=== PATIENT | male | born 1980 | race Hispanic/Latino ===

== ENCOUNTER 2019-08-27 17:50 | Emergency (ER) | payer BC ==
--- NOTE | 2019-08-27 19:12 | RAD REPORT ---
EXAM DESCRIPTION: RAD - Chest Pa And Lat (2 Views) - 08/27/2019 7:05 pm CLINICAL HISTORY: left rib pain Chest pain. COMPARISON: CHEST SINGLE VIEW dated 02/02/2015 FINDINGS: The lungs are clear. The heart is normal in size. No displaced fractures. IMPRESSION: No acute or concerning finding suspected.
[2019-08-27] MEDS ORDERED: KETOROLAC 30 MG/ML INJ ONE (20:23)
--- NOTE | 2019-08-27 22:37 | ER ---
Nurse's Notes [facility] Name: Julius Rogers Age: 39 yrs Sex: Male : 1980 Arrival Date: 08/27/2019 Time: 17:52 Bed 20 Private MD: Jarad Wynn Diagnosis: Headache Presentation: 08/27 18:00 Presenting complaint: Patient states: dizzy and headache and left side has been iw twitching X 3 days. Transition of care: patient was not received from another setting of care. Onset of symptoms was August 24, 2019. Risk Assessment: Do you want to hurt yourself or someone else? Patient reports no desire to harm self or others. Initial Sepsis Screen: Does the patient meet any 2 criteria? No. Patient's initial sepsis screen is negative. Does the patient have a suspected source of infection? No. Patient's initial sepsis screen is negative. Care prior to arrival: None. 18:00 Method Of Arrival: Ambulatory iw 18:00 Acuity: GARTH 3 iw Triage Assessment: 23:03 Headache History: Denies prior headaches. General: Appears in no apparent distress. lc1 Behavior is calm, cooperative. Pain: Also complains of. Pain: Complains of pain in left eye and right eye and diaphragm Pain began. Historical: - Allergies: 18:01 No Known Allergies; iw - Home Meds: 18:01 None [Active]; iw - PMHx: 18:01 None; iw - PSHx: 18:01 None; iw - Immunization history:: Adult Immunizations not up to date. - Social history:: Smoking status: Patient/guardian denies using tobacco. - Ebola Screening: : Patient negative for fever greater than or equal to 101.5 degrees Fahrenheit, and additional compatible Ebola Virus Disease symptoms Patient denies exposure to infectious person Patient denies travel to an Ebola-affected area in the 21 days before illness onset No symptoms or risks identified at this time. Screenin:51 Abuse screen: Denies threats or abuse. Nutritional screening: No deficits noted. em Tuberculosis screening: No symptoms or risk factors identified. Fall Risk None identified. Assessment: 18:30 General: Appears in no apparent distress. comfortable, Behavior is calm, cooperative, em Denies fever. Pain: Complains of pain in diaphragm Pain currently is 8 out of 10 on a pain scale. Neuro: Level of Consciousness is awake, alert, obeys commands, Oriented to person, place, time, situation, Appropriate for age Reports headache. Cardiovascular: Capillary refill < 3 seconds Patient's skin is warm and dry. Respiratory: Airway is patent Respiratory effort is even, unlabored, Respiratory pattern is regular, symmetrical, Denies cough. : Denies burning with urination. Derm: Skin is intact, is healthy with good turgor, Skin is pink, warm \T\ dry. Musculoskeletal: Capillary refill < 3 seconds, Range of motion: intact in all extremities. 20:07 Reassessment: No changes from previously documented assessment. Patient and/or family lc1 updated on plan of care and expected duration. Pain level reassessed. Patient is alert, oriented x 3, equal unlabored respirations, skin warm/dry/pink. Patient states feeling better. still awaiting urine sample . 20:24 Pain: Complains of pain in left diaphragm Pain does not radiate. Pain currently is 7 lc1 out of 10 on a pain scale. Quality of pain is described as sharp. 21:05 Reassessment: No changes from previously documented assessment. Patient and/or family lc1 updated on plan of care and expected duration. Pain level reassessed. Patient is alert, oriented x 3, equal unlabored respirations, skin warm/dry/pink. Patient states feeling better. 22:00 Reassessment: No changes from previously documented assessment. Patient and/or family lc1 updated on plan of care and expected duration. Pain level reassessed. Patient is alert, oriented x 3, equal unlabored respirations, skin warm/dry/pink. Patient states feeling better. 23:01 Reassessment: No changes from previously documented assessment. Patient and/or family lc1 updated on plan of care and expected duration. Pain level reassessed. Patient is alert, oriented x 3, equal unlabored respirations, skin warm/dry/pink. Patient states feeling better. Vital Signs: 18:01 BP 127 / 79; Pulse 96; Resp 16; Temp 98.4; Pulse Ox 100% on R/A; Weight 115.67 kg; iw Height 5 ft. 10 in. (177.80 cm); Pain 8/10; 19:00 BP 131 / 85; Pulse 72; Resp 16; Pulse Ox 95% ; lc1 20:00 BP 116 / 82; Pulse 75; Resp 16; Pulse Ox 95% ; lc1 21:00 BP 119 / 83; Pulse 70; Resp 18; Pulse Ox 95% ; Pain 5/10; lc1 21:50 BP 118 / 91; Pulse 66; Resp 17; Temp 97.8(O); Pulse Ox 95% on R/A; mh5 22:15 BP 111 / 59; Pulse 59; Resp 18; Pulse Ox 96% on R/A; lc1 18:01 Body Mass Index 36.59 (115.67 kg, 177.80 cm) iw [place] Com[place] Score: 21:44 Eye Response: spontaneous(4). Verbal Response: oriented(5). Motor Response: obeys snw commands(6). Total: 15. ED Course: 17:52 Patient arrived in ED. mr 17:52 Jarad Wynn MD is Private Physician. mr 18:01 Triage completed. iw 18:02 Arm band placed on. iw 18:31 Marybeth Keith FNP-C [facility] snw 18:31 Andrea Garcia MD is Attending Physician. snw 18:32 Timoteo Alba LVN is Primary Nurse. em 18:45 Flu Sent. dh3 18:45 Strep Sent. dh3 18:51 Patient has correct armband on for positive identification. Bed in low position. Call em light in reach. 19:03 Chest Pa And Lat (2 Views) XRAY In Process Unspecified. EDMS 22:15 No provider procedures requiring assistance completed. Patient did not have IV access lc1 during this emergency room visit. 22:35 Jarad Wynn MD is Referral Physician. snw Administered Medications: 20:22 Drug: TORadol 30 mg Route: IM; Site: right deltoid; lc1 21:06 Follow up: Response: Pain is decreased; RASS: Alert and Calm (0) lc1 Outcome: 22:15 Discharged to home ambulatory. lc1 22:15 Condition: good 22:15 Discharge instructions given to patient, Instructed on discharge instructions, follow up and referral plans. medication usage, Demonstrated understanding of instructions, follow-up care, medications, Prescriptions given X 2. 22:35 Discharge ordered by MD. snw 23:23 Patient left the ED. lc1 Signatures: Dispatcher [employer] EDMS Marybeth Keith FNP-C FNP-Csnw Lesly Moe mr Alba, Timoteo, CUSTOMER QUALITY SPECIALIST CUSTOMER QUALITY SPECIALIST Felipa Lim, MELANIE RN Sherlyn Marquez 1 [facility] Sonia Crawford 3
--- NOTE | 2019-08-27 22:37 | EDPHYS ---
Physician Documentation [facility] Name: Julius Rogers Age: 39 yrs Sex: Male : 1980 Arrival Date: 08/27/2019 Time: 17:52 Bed 20 Private MD: Jarad Wynn ED Physician Andrea Garcia HPI: 08/27 22:34 This 39 yrs old Male presents to ER via Ambulatory with complaints of snw Headache, Dizziness, Rib pain. 22:34 The patient complains of pain to the right eye and left eye. The patient describes the snw headache as intermittent. Onset: The symptoms/episode began/occurred gradually, 3 day(s) ago, and became persistent. Associated signs and symptoms: Pertinent positives: dizziness. Severity of symptoms: At its worst the pain was moderate, in the emergency department the pain is unchanged. Headache History: Denies prior headaches. The symptoms are alleviated by over the counter pain medication, remaining still. It is unknown whether or not the patient has had similar symptoms in the past. The patient has not recently seen a physician. Historical: - Allergies: 18:01 No Known Allergies; iw - Home Meds: 18:01 None [Active]; iw - PMHx: 18:01 None; iw - PSHx: 18:01 None; iw - Immunization history:: Adult Immunizations not up to date. - Social history:: Smoking status: Patient/guardian denies using tobacco. - Ebola Screening: : Patient negative for fever greater than or equal to 101.5 degrees Fahrenheit, and additional compatible Ebola Virus Disease symptoms Patient denies exposure to infectious person Patient denies travel to an Ebola-affected area in the 21 days before illness onset No symptoms or risks identified at this time. ROS: 21:43 Constitutional: Negative for fever, chills, and weight loss, Eyes: Negative for injury, snw pain, redness, and discharge, ENT: Negative for injury, pain, and discharge, Neck: Negative for injury, pain, and swelling, Cardiovascular: Negative for chest pain, palpitations, and edema, Respiratory: Negative for shortness of breath, cough, wheezing, and pleuritic chest pain, Abdomen/GI: Negative for abdominal pain, nausea, vomiting, diarrhea, and constipation, + left flank pain Back: Negative for injury and pain, : Negative for injury, bleeding, discharge, and swelling, MS/Extremity: Negative for injury and deformity, Skin: Negative for injury, rash, and discoloration, Neuro: Negative for weakness, numbness, tingling, and seizure, + intermittent headache behind eyes Exam: 18:58 Constitutional: This is a well developed, well nourished patient who is awake, alert, snw and in no acute distress. Head/Face: Normocephalic, atraumatic. Eyes: Pupils equal round and reactive to light, extra-ocular motions intact. Lids and lashes normal. Conjunctiva and sclera are non-icteric and not injected. Cornea within normal limits. Periorbital areas with no swelling, redness, or edema. ENT: Nares patent. No nasal discharge, no septal abnormalities noted. Tympanic membranes are normal and external auditory canals are clear. Oropharynx with no redness, swelling, or masses, exudates, or evidence of obstruction, uvula midline. Mucous membranes moist. Neck: Trachea midline, no thyromegaly or masses palpated, and no cervical lymphadenopathy. Supple, full range of motion without nuchal rigidity, or vertebral point tenderness. No Meningismus. Chest/axilla: Normal chest wall appearance and motion. Nontender with no deformity. No lesions are appreciated. Cardiovascular: Regular rate and rhythm with a normal S1 and S2. No gallops, murmurs, or rubs. Normal PMI, no JVD. No pulse deficits. Respiratory: Lungs have equal breath sounds bilaterally, clear to auscultation and percussion. No rales, rhonchi or wheezes noted. No increased work of breathing, no retractions or nasal flaring. Abdomen/GI: Soft, non-tender, with normal bowel sounds. No distension or tympany. No guarding or rebound. No evidence of tenderness throughout. Back: No spinal tenderness. No costovertebral tenderness. Full range of motion. Skin: Warm, dry with normal turgor. Normal color with no rashes, no lesions, and no evidence of cellulitis. MS/ Extremity: Pulses equal, no cyanosis. Neurovascular intact. Full, normal range of motion. Neuro: Awake and alert, GCS 15, oriented to person, place, time, and situation. Cranial nerves II-XII grossly intact. Motor strength 5/5 in all extremities. Sensory grossly intact. Cerebellar exam normal. Normal gait. Psych: Awake, alert, with orientation to person, place and time. Behavior, mood, and affect are within normal limits. Vital Signs: 18:01 BP 127 / 79; Pulse 96; Resp 16; Temp 98.4; Pulse Ox 100% on R/A; Weight 115.67 kg; iw Height 5 ft. 10 in. (177.80 cm); Pain 8/10; 19:00 BP 131 / 85; Pulse 72; Resp 16; Pulse Ox 95% ; lc1 20:00 BP 116 / 82; Pulse 75; Resp 16; Pulse Ox 95% ; lc1 21:00 BP 119 / 83; Pulse 70; Resp 18; Pulse Ox 95% ; Pain 5/10; lc1 21:50 BP 118 / 91; Pulse 66; Resp 17; Temp 97.8(O); Pulse Ox 95% on R/A; mh5 22:15 BP 111 / 59; Pulse 59; Resp 18; Pulse Ox 96% on R/A; lc1 18:01 Body Mass Index 36.59 (115.67 kg, 177.80 cm) iw [place] Coma Score: 21:44 Eye Response: spontaneous(4). Verbal Response: oriented(5). Motor Response: obeys snw commands(6). Total: 15. MDM: 18:43 Patient medically screened. snw 21:44 Data reviewed: vital signs, nurses notes. Data interpreted: Pulse oximetry: on room air snw is 95 %. Interpretation: acceptable. Counseling: I had a detailed discussion with the patient and/or guardian regarding: the historical points, exam findings, and any diagnostic results supporting the discharge/admit diagnosis, the presence of at least one elevated blood pressure reading (>120/80) during this emergency department visit, lab results, the need for outpatient follow up, to return to the emergency department if symptoms worsen or persist or if there are any questions or concerns that arise at home. Response to treatment: the patient's symptoms have markedly improved after treatment. Awaiting: urine. 08/27 18:32 Order name: Flu snw 08/27 18:32 Order name: Strep; Complete Time: 19:13 snw 08/27 18:32 Order name: Urine Microscopic Only; Complete Time: 23:14 snw 08/27 18:33 Order name: Influenza Screen (A ; Complete Time: 19:19 EDWV 08/27 19:07 Order name: Throat Culture EDWV 08/27 22:41 Order name: Urine Dipstick--Ancillary (enter results); Complete Time: 23:16 mw2 08/27 18:52 Order name: Chest Pa And Lat (2 Views) XRAY; Complete Time: 19:15 snw Administered Medications: 20:22 Drug: TORadol 30 mg Route: IM; Site: right deltoid; lc1 21:06 Follow up: Response: Pain is decreased; RASS: Alert and Calm (0) lc1 Disposition: 08/28 07:44 Co-signature as Attending Physician, Andrea Garcia MD I agree with the assessment and kdr plan of care. Disposition: 08/27/19 22:35 Discharged to Home. Impression: Headache. - Condition is Stable. - Discharge Instructions: General Headache Without Cause, Hypertension, Rehydration, Adult. - Prescriptions for Diclofenac Sodium 75 mg Oral Tablet Sustained Release - take 1 tablet by ORAL route 2 times per day; 30 tablet. promethazine 25 mg Oral Tablet - take 1 tablet by ORAL route every 6 hours As needed; 20 tablet. - Work release form, Medication Reconciliation Form, Thank You Letter, Antibiotic Education, Prescription Opioid Use form. - Follow up: Jarad Wynn MD; When: 1 - 2 days; Reason: Recheck today's complaints, Continuance of care, Re-evaluation by your physician. Follow up: Emergency Department; When: As needed; Reason: Worsening of condition. Signatures: Dispatcher [employer] [facility] Andrea Garcia MD MD kdr Therrien, Shelly, SUPPORT SERVICES REP-Zack SUPPORT SERVICES REP-Valdow Felipa Becker, RN Sherlyn Jackson 1 Corrections: (The following items were deleted from the chart) 08/27 21:44 21:43 Constitutional: Negative for fever, chills, and weight loss, Eyes: Negative for snw injury, pain, redness, and discharge, ENT: Negative for injury, pain, and discharge, Neck: Negative for injury, pain, and swelling, Cardiovascular: Negative for chest pain, palpitations, and edema, Respiratory: Negative for shortness of breath, cough, wheezing, and pleuritic chest pain, Back: Negative for injury and pain, : Negative for injury, bleeding, discharge, and swelling, MS/Extremity: Negative for injury and deformity, Skin: Negative for injury, rash, and discoloration, Neuro: Negative for headache, weakness, numbness, tingling, and seizure, snw 21:44 21:43 Abdomen/GI: Positive for abdominal pain, nausea and vomiting, snw snw 23:23 22:35 08/27/2019 22:35 Discharged to Home. Impression: Headache. Condition is Stable. lc1 Forms are Medication Reconciliation Form, Thank You Letter, Antibiotic Education, Prescription Opioid Use. Follow up: Jarad Wynn; When: 1 - 2 days; Reason: Recheck today's complaints, Continuance of care, Re-evaluation by your physician. Follow up: Emergency Department; When: As needed; Reason: Worsening of condition. snw
[2019-08-27 23:13] LABS: Urine Bacteria <20 /HPF (NONE SEEN); Urine Culture Reflex Order NOT NEEDED; Urine Mucus 2+ /HPF (NONE SEEN); Urine RBC <5 /HPF (NONE SEEN)
[2019-08-27 23:14] LABS: Urine Blood TRACE (NEG); Urine Glucose NEGATIVE (NEG); Urine Protein 1+ (NEG); Urine Specific Gravity 1.025 (1.005-1.030)
[2019-08-28 00:45] VITALS: BP 140/71; TEMP 98.9; O2SAT 100
== END 2019-08-27 23:23 | disposition home or self-care (01) ==
LOC: ER 17:50
DX: R51 Headache (principal)
CPT/HCPCS: 71046; 81003; 81015; 87070; 87081; 87804; 96372; 99284

== ENCOUNTER 2019-08-31 16:46 | Observation (INO) | payer BC ==
[2019-08-31] MEDS ORDERED: ASPIRIN 81 MG CHEWABLE TABLET ONE (17:30)
[2019-08-31 17:42] LABS: Absolute Lymphocytes (CBC) 3.5 K/uL (0.7-4.9); Basophils % 0.4 % (0-1.3); Hematocrit 44.3 % (39.6-49.0); Lymphocytes % 30.5 % (15.3-44.8); MPV 11.4 fL (7.6-11.3); RBC Red Blood Cell Count 4.85 M/uL (4.33-5.43)
[2019-08-31 17:49] LABS: Protime INR 1.12
[2019-08-31 18:04] LABS: ALT/SGPT 105 U/L (12-78); AST/SGOT 49 U/L (15-37); Albumin 4.1 g/dL (3.4-5.0); Alkaline Phosphatase 68 U/L (45-117); BUN Blood Urea Nitrogen 8 mg/dL (7-18); Bicarbonate 25 mmol/L (21-32); Bilirubin Direct 0.2 mg/dL (0-0.2); Bilirubin Total 0.5 mg/dL (0.2-1.0); Glucose Level 154 mg/dL (74-106); Lipase 115 U/L (73-393); Magnesium 2.1 mg/dL (1.8-2.4); NT PRO-BNP 12 pg/mL (<125); Protein, Total 8.4 g/dL (6.4-8.2); Sodium Level 139 mmol/L (136-145); Troponin (Emerg Dept Use Only) < 0.02 ng/mL (0.0-0.045)
[2019-08-31] MEDS ORDERED: MORPHINE 4 MG/ML SYR ONE (18:04)
[2019-08-31] MEDS ORDERED: ONDANSETRON 4 MG/2 ML VIAL ONE (18:04)
--- NOTE | 2019-08-31 18:35 | RAD REPORT ---
EXAM DESCRIPTION: [place] Single View08/31/2019 5:30 pm CLINICAL HISTORY: Chest pain COMPARISON: August 27, 2019 FINDINGS: The lungs appear clear of acute infiltrate. The heart is normal size IMPRESSION: No acute abnormalities displayed
--- NOTE | 2019-08-31 18:36 | ER ---
Nurse's Notes [facility] Name: Julius Rogers Age: 39 yrs Sex: Male : 1980 Arrival Date: 08/31/2019 Time: 16:47 Bed 11 Private MD: Diagnosis: Chest pain, unspecified;Essential (primary) hypertension;Hypokalemia;Obesity, unspecified Presentation: 08/31 17:32 Presenting complaint: Patient states: chest tightness radiates to back, SOB, sr5 palpitations, nausea, headache and dizzy. Seen here last week. Transition of care: patient was not received from another setting of care. Onset of symptoms was August 31, 2019 at 15:30. Risk Assessment: Do you want to hurt yourself or someone else? Patient reports no desire to harm self or others. Initial Sepsis Screen: Does the patient meet any 2 criteria? No. Patient's initial sepsis screen is negative. Care prior to arrival: None. 17:32 Method Of Arrival: Ambulatory sr5 17:32 Acuity: GARTH 3 sr5 Triage Assessment: 17:35 General: Appears in no apparent distress. Behavior is calm, cooperative. Pain: sr5 Complains of pain in mid-sternal area Pain radiates to back Pain currently is 9 out of 10 on a pain scale. Pain began 1 hr [employer]. Neuro: Level of Consciousness is awake, alert, obeys commands, Oriented to person, place, time, situation, Moves all extremities. Gait is steady, Speech is normal, Facial symmetry appears normal, Reports dizziness, headache. Cardiovascular: Patient's skin is warm and dry. Rhythm is sinus rhythm. Respiratory: Respiratory effort is even, unlabored, Respiratory pattern is regular, symmetrical. GI: Reports diarrhea, nausea, vomiting. : No signs and/or symptoms were reported regarding the genitourinary system. Derm: No signs and/or symptoms reported regarding the dermatologic system. Musculoskeletal: No signs and/or symptoms reported regarding the musculoskeletal system. Historical: - Allergies: 17:35 No Known Drug Allergies; sr5 - PMHx: 17:35 None; sr5 - PSHx: 17:35 None; sr5 - Immunization history:: Adult Immunizations up to date. - Social history:: Smoking status: Patient/guardian denies using tobacco, never smoked. - Ebola Screening: : Patient negative for fever greater than or equal to 101.5 degrees Fahrenheit, and additional compatible Ebola Virus Disease symptoms. - Family history:: not pertinent. Screenin:22 Abuse screen: Denies threats or abuse. Nutritional screening: No deficits noted. sr5 Tuberculosis screening: No symptoms or risk factors identified. Fall Risk No fall in past 12 months (0 pts). No secondary diagnosis (0 pts). IV access (20 points). Ambulatory Aid- None/Bed Rest/Nurse Assist (0 pts). Gait- Normal/Bed Rest/Wheelchair (0 pts) Mental Status- Oriented to own ability (0 pts). Total Davis Fall Scale indicates No Risk (0-24 pts). Assessment: 19:22 Reassessment: Pt continues to be AA\\T\\Ox4, equal unlabored resp, room air, skin sr5 warm/dry/nc, SR on monitor. IV site asympt/SL, Awaiting admission. General: Appears in no apparent distress. 22:53 Reassessment: Troponin #2 drawn and sent. UA collected. sr5 Vital Signs: 17:35 BP 132 / 84; Pulse 96; Resp 17; Temp 98.2; Pulse Ox 96% on R/A; Weight 115.67 kg (R); sr5 Height 5 ft. 11 in. (180.34 cm); Pain 9/10; 19:22 BP 131 / 106; Pulse 81; Resp 16; Pulse Ox 96% on R/A; Pain 7/10; sr5 20:25 BP 131 / 87; Pulse 69; Resp 14; Pulse Ox 97% on R/A; sr5 21:11 BP 127 / 100; Pulse 65; Resp 18; Pulse Ox 95% on R/A; sr5 22:52 BP 138 / 83; Pulse 67; Resp 18; Temp 99; Pulse Ox 95% on R/A; Pain 7/10; sr5 17:35 Body Mass Index 35.56 (115.67 kg, 180.34 cm) sr5 17:35 chest sr5 19:22 LEFT chest "tight feel" sr5 20:25 SR sr5 21:11 sinus rhythm on monitor, sitting upright talking with family sr5 22:52 shooting chest pain remains LEFT chest, skin warm/dry/nc, pt appears in no distress sr5 Vitals: 19:22 Cardiac Rhythm Assessment Sinus rhythm. sr5 ED Course: 16:47 Patient arrived in ED. as 17:12 Chan Borges MD is Attending Physician. vandana 17:25 Bart Betancourt, RN is Primary Nurse. sr5 17:30 XRAY Chest (1 view) In Process Unspecified. EDMS 17:30 Missed attempt(s): 20 gauge in right antecubital area. Bleeding controlled, band aid jp3 applied, catheter tip intact. 17:35 Triage completed. sr5 17:35 Arm band placed on. EKG completed in triage. Results shown to MD. sr5 17:35 Inserted saline lock: 20 gauge in right antecubital area, using aseptic technique. jp3 Blood collected. 17:35 Initial lab(s) drawn, by me, sent to lab. EKG done, by ED staff, reviewed by Chan Borges MD. Patient maintains SpO2 saturation greater than 95% on room air. 17:42 Bed in low position. Call light in reach. Side rails up X 1. Side rails up X2. Warm jp3 blanket given. Verbal reassurance given. monitor technician on. Pulse ox on. NIBP on. 18:35 James Mack DO is Hospitalizing Provider. [facility] 19:22 No provider procedures requiring assistance completed. Patient admitted, IV remains in sr5 place. 09/01 10:48 Echocardiogram with Doppler done by chemical technician. tc Administered Medications: 08/31 17:31 Drug: Aspirin Chewable Tablet 162 mg Route: PO; sr5 18:09 Follow up: Response: No adverse reaction sr5 18:08 Drug: Zofran 4 mg Route: IVP; Site: right antecubital; sr5 19:22 Follow up: Response: No change in condition sr5 18:09 Drug: morphine 4 mg Route: IVP; Site: right antecubital; sr5 19:22 Follow up: Response: Pain is decreased sr5 19:21 Drug: Lopressor (metoprolol TARTRATE) 50 mg Route: PO; sr5 22:51 Follow up: Response: Blood pressure is lowered sr5 19:21 Drug: Potassium Effervescent Tablet 50 mEq Route: PO; sr5 22:51 Follow up: Response: No adverse reaction sr5 19:21 Drug: Pepcid 20 mg Route: IVP; Site: right antecubital; sr5 22:49 Follow up: Response: No adverse reaction sr5 22:51 Follow up: Response: No adverse reaction sr5 19:22 Drug: Lovenox 1 mg/kg Route: Sub-Q; Site: right lower abdomen; sr5 22:51 Follow up: Response: No adverse reaction sr5 Outcome: 18:35 Decision to Hospitalize by Provider. vandana 22:51 Admitted to Tele Other ER HOLD sr5 22:51 Condition: good 22:51 Instructed on the need for admit. 09/01 12:36 Patient left the ED. hb Signatures: Dispatcher [employer] EDChan Goncalves MD MD cha Martinez, Amelia as Callis, Tiffany, registered phlebotomist part time EKG Ttc Yadi Larios RN RN Bart Christensen RN RN sr5 Devan Higuera jp3
--- NOTE | 2019-08-31 18:37 | EDPHYS ---
Physician Documentation [facility] Name: Julius Rogers Age: 39 yrs Sex: Male : 1980 Arrival Date: 08/31/2019 Time: 16:47 Bed 11 Private MD: ED Physician Chan Borges HPI: 08/31 18:32 This 39 yrs old Male presents to ER via Ambulatory with complaints of Chest vandana Tightness, Dizziness, Back Pain. 18:32 The patient or guardian reports chest pain that is located primarily in the substernal vandana area. The pain radiates to Associated signs and symptoms: Pertinent positives: shortness of breath. The chest pain is described as a heaviness, a pressure, squeezing. Duration: The patient or guardian reports multiple episodes, with no pattern. Modifying factors: The symptoms are alleviated by nothing. the symptoms are aggravated by nothing. Severity of pain: At its worst the pain was mild moderate in the emergency department the pain has improved moderately. The patient has not experienced similar symptoms in the past. Historical: - Allergies: 17:35 No Known Drug Allergies; sr5 - PMHx: 17:35 None; sr5 - PSHx: 17:35 None; sr5 - Immunization history:: Adult Immunizations up to date. - Social history:: Smoking status: Patient/guardian denies using tobacco, never smoked. - Ebola Screening: : Patient negative for fever greater than or equal to 101.5 degrees Fahrenheit, and additional compatible Ebola Virus Disease symptoms. - Family history:: not pertinent. ROS: 18:32 Constitutional: Negative for fever, chills, and weight loss, Eyes: Negative for injury, vandana pain, redness, and discharge, ENT: Negative for injury, pain, and discharge, Neck: Negative for injury, pain, and swelling, Abdomen/GI: Negative for abdominal pain, nausea, vomiting, diarrhea, and constipation, Back: Negative for injury and pain, : Negative for injury, bleeding, discharge, and swelling, MS/Extremity: Negative for injury and deformity, Skin: Negative for injury, rash, and discoloration, Neuro: Negative for headache, weakness, numbness, tingling, and seizure. 18:32 Cardiovascular: Positive for chest pain. 18:32 Respiratory: Positive for shortness of breath, at rest. Exam: 18:32 Constitutional: This is a well developed, well nourished patient who is awake, alert, vandana and in no acute distress. Head/Face: Normocephalic, atraumatic. Eyes: Pupils equal round and reactive to light, extra-ocular motions intact. Lids and lashes normal. Conjunctiva and sclera are non-icteric and not injected. Cornea within normal limits. Periorbital areas with no swelling, redness, or edema. ENT: Nares patent. No nasal discharge, no septal abnormalities noted. Tympanic membranes are normal and external auditory canals are clear. Oropharynx with no redness, swelling, or masses, exudates, or evidence of obstruction, uvula midline. Mucous membranes moist. Neck: Trachea midline, no thyromegaly or masses palpated, and no cervical lymphadenopathy. Supple, full range of motion without nuchal rigidity, or vertebral point tenderness. No Meningismus. Chest/axilla: Normal chest wall appearance and motion. Nontender with no deformity. No lesions are appreciated. Cardiovascular: Regular rate and rhythm with a normal S1 and S2. No gallops, murmurs, or rubs. Normal PMI, no JVD. No pulse deficits. Respiratory: Lungs have equal breath sounds bilaterally, clear to auscultation and percussion. No rales, rhonchi or wheezes noted. No increased work of breathing, no retractions or nasal flaring. Abdomen/GI: Soft, non-tender, with normal bowel sounds. No distension or tympany. No guarding or rebound. No evidence of tenderness throughout. Back: No spinal tenderness. No costovertebral tenderness. Full range of motion. Male : Normal genitalia with no discharge or lesions. Skin: Warm, dry with normal turgor. Normal color with no rashes, no lesions, and no evidence of cellulitis. MS/ Extremity: Pulses equal, no cyanosis. Neurovascular intact. Full, normal range of motion. Neuro: Awake and alert, GCS 15, oriented to person, place, time, and situation. Cranial nerves II-XII grossly intact. Motor strength 5/5 in all extremities. Sensory grossly intact. Cerebellar exam normal. Normal gait. Psych: Awake, alert, with orientation to person, place and time. Behavior, mood, and affect are within normal limits. 18:32 Musculoskeletal/extremity: DVT Exam: No signs of deep vein thrombosis. no pain, no swelling, no tenderness, negative Homans' sign noted on exam, no appreciated bluish discoloration, no erythema, no increased warmth. Vital Signs: 17:35 BP 132 / 84; Pulse 96; Resp 17; Temp 98.2; Pulse Ox 96% on R/A; Weight 115.67 kg (R); sr5 Height 5 ft. 11 in. (180.34 cm); Pain 9/10; 19:22 BP 131 / 106; Pulse 81; Resp 16; Pulse Ox 96% on R/A; Pain 7/10; sr5 20:25 BP 131 / 87; Pulse 69; Resp 14; Pulse Ox 97% on R/A; sr5 21:11 BP 127 / 100; Pulse 65; Resp 18; Pulse Ox 95% on R/A; sr5 22:52 BP 138 / 83; Pulse 67; Resp 18; Temp 99; Pulse Ox 95% on R/A; Pain 7/10; sr5 17:35 Body Mass Index 35.56 (115.67 kg, 180.34 cm) sr5 17:35 chest sr5 19:22 LEFT chest "tight feel" sr5 20:25 SR sr5 21:11 sinus rhythm on monitor, sitting upright talking with family sr5 22:52 shooting chest pain remains LEFT chest, skin warm/dry/nc, pt appears in no distress sr5 MDM: 17:12 Patient medically screened. [facility] 18:34 Data reviewed: vital signs, nurses notes, lab test result(s), EKG, radiologic studies, vandana plain films. 08/31 17:13 Order name: Basic Metabolic Panel; Complete Time: 18:[address] [facility] 08/31 17:13 Order name: CBC with Diff; Complete Time: 18:[address] [facility] 08/31 17:13 Order name: LFT's; Complete Time: 18:[address] [facility] 08/31 17:13 Order name: Magnesium; Complete Time: 18:[address] [facility] 08/31 17:13 Order name: NT PRO-BNP; Complete Time: 18:[address] [facility] 08/31 17:13 Order name: PT-INR; Complete Time: 18:[address] [facility] 08/31 17:13 Order name: Troponin (emerg Dept Use Only); Complete Time: 18:[address] [facility] 08/31 17:13 Order name: Lipase; Complete Time: 18:[address] [facility] 08/31 17:13 Order name: Urine Culture [facility] 08/31 22:21 Order name: Troponin (emerg Dept Use Only) [facility] 08/31 22:35 Order name: Urine Microscopic Only [facility] 08/31 22:49 Order name: Urine Dipstick--Ancillary (enter results) 6 08/31 22:50 Order name: Urine Culture [facility] 08/31 22:55 Order name: Urine Dipstick-Ancillary [facility] 08/31 23:12 Order name: Troponin (Emerg Dept Use Only) [facility] 08/31 23:34 Order name: Urine Microscopic Only [facility] 09/01 02:55 Order name: CBC with Automated Diff [facility] 09/01 02:57 Order name: Creatine Phosphokinase [facility] 09/01 02:57 Order name: CKMB Creatine Kinase MB [facility] 09/01 02:57 Order name: Troponin I [facility] 09/01 03:04 Order name: Basic Metabolic Panel [facility] 09/01 03:04 Order name: Lipid Profile [facility] 09/01 03:04 Order name: T4 Free [facility] 09/01 03:04 Order name: Magnesium [facility] 09/01 03:04 Order name: Thyroid Stimulating Hormone [facility] 09/01 03:16 Order name: LDL, Direct [facility] 09/01 10:51 Order name: Creatine Phosphokinase [facility] 09/01 10:51 Order name: CKMB Creatine Kinase MB [facility] 09/01 10:51 Order name: Troponin I [facility] 08/31 17:13 Order name: XRAY Chest (1 view) [facility] 08/31 17:13 Order name: EKG; Complete Time: 17:[address] [facility] 08/31 17:13 Order name: Cardiac monitoring; Complete Time: 17:[address] [facility] 08/31 17:13 Order name: EKG - Nurse/Tech; Complete Time: 17:[address] [facility] 08/31 17:13 Order name: IV Saline Lock; Complete Time: 17:[address] [facility] 08/31 17:13 Order name: Labs collected and sent; Complete Time: 17:[address] [facility] 08/31 17:13 Order name: O2 Per Protocol; Complete Time: 17:[address] [facility] 08/31 17:13 Order name: O2 Sat Monitoring; Complete Time: 17:[address] [facility] Administered Medications: 17:31 Drug: Aspirin Chewable Tablet 162 mg Route: PO; sr5 18:09 Follow up: Response: No adverse reaction sr5 18:08 Drug: Zofran 4 mg Route: IVP; Site: right antecubital; sr5 19:22 Follow up: Response: No change in condition sr5 18:09 Drug: morphine 4 mg Route: IVP; Site: right antecubital; sr5 19:22 Follow up: Response: Pain is decreased sr5 19:21 Drug: Lopressor (metoprolol TARTRATE) 50 mg Route: PO; sr5 22:51 Follow up: Response: Blood pressure is lowered sr5 19:21 Drug: Potassium Effervescent Tablet 50 mEq Route: PO; sr5 22:51 Follow up: Response: No adverse reaction sr5 19:21 Drug: Pepcid 20 mg Route: IVP; Site: right antecubital; sr5 22:49 Follow up: Response: No adverse reaction sr5 22:51 Follow up: Response: No adverse reaction sr5 19:22 Drug: Lovenox 1 mg/kg Route: Sub-Q; Site: right lower abdomen; sr5 22:51 Follow up: Response: No adverse reaction sr5 Disposition: 08/31/19 18:35 Hospitalization ordered by James Mack for Observation. Preliminary diagnosis are Chest pain, unspecified, Essential (primary) hypertension, Hypokalemia, Obesity, unspecified. - Bed requested for Telemetry/MedSurg (Inpatient). - Status is Observation. - Condition is Stable. - Problem is new. - Symptoms have improved. UTI on Admission? No Signatures: Dispatcher [employer] EDMS Rhonda Haile Chan Borges MD MD cha Baxter, Heather, RN RN Bart Betancourt RN RN sr5 Gabriele Chacon, RN RN ja1 Corrections: (The following items were deleted from the chart) 19:42 18:35 Hospitalization Ordered by James Mack DO for Observation. Preliminary ja1 diagnosis is Chest pain, unspecified; Essential (primary) hypertension; Hypokalemia; Obesity, unspecified. Bed requested for Telemetry/MedSurg (observation). Status is Observation. Condition is Stable. Problem is new. Symptoms have improved. UTI on Admission? No. [facility] 09/01 11:19 08/31 19:42 08/31/2019 18:35 Hospitalization Ordered by James Mack DO for bd Observation. Preliminary diagnosis is Chest pain, unspecified; Essential (primary) hypertension; Hypokalemia; Obesity, unspecified. Bed requested for [facility] ER HOLD. Status is Observation. Condition is Stable. Problem is new. Symptoms have improved. UTI on Admission? No. ja1 09/01 12:36 11:19 08/31/2019 18:35 Hospitalization Ordered by James Mack DO for Observation. hb Preliminary diagnosis is Chest pain, unspecified; Essential (primary) hypertension; Hypokalemia; Obesity, unspecified. Bed requested for Telemetry/MedSurg (Inpatient). Status is Observation. Condition is Stable. Problem is new. Symptoms have improved. UTI on Admission? No. bd
[2019-08-31] MEDS ORDERED: METOPROLOL TAR 50 MG TAB ONE (19:15)
[2019-08-31] MEDS ORDERED: POTASSIUM 25 MEQ EFFERV TAB ONE (19:15)
[2019-08-31] MEDS ORDERED: ENOXAPARIN 100 MG/ML SYR SQ ONE (19:15)
[2019-08-31] MEDS ORDERED: FAMOTIDINE 20 MG/2 ML VIAL IV ONE (19:16)
--- NOTE | 2019-08-31 21:05 | P.HP ---
Certification for Inpatient Patient admitted to: Observation With expected LOS: <2 Midnights Patient will require the following post-hospital care: None Practitioner: I am a practitioner with admitting privileges, knowledge of patient current condition, hospital course, and medical plan of care. Services: Services provided to patient in accordance with Admission requirements found in Title 42 Section 412.3 of the Code of Federal Regulations Patient History Date of Service: 08/31/19 Primary Care Provider: Dr. Wynn Reason for admission: chest pain History of Present Illness: 39-year-old male presented to emergency room with chest pain. He reports the chest pain started today around 345 p.m. while he was sitting at home. It was mainly to the left side. No radiation of pain noted. This had occurred last week as well. He was seen in the emergency room at that time. He was evaluated and sent home. Patient denies fever, chills. Patient also reports some back pain. Patient has history of elevated blood pressure without hypertension. In the ER patient evaluated. Initial troponin unremarkable. CBC unremarkable. Sodium 138, potassium 3.0. BUN of 8, creatinine 1.08 with a GFR 77. AST slightly elevated at 49 ALT elevated 165. Chest x-ray unremarkable. EKG shows non specific changes. Patient was admitted for observation and further evaluation. In the ER when I evaluate the patient he appeared stable. Patient reports history of stress test done 3 years ago which was normal. There is a family history of CAD. Patient admits alcohol use. Patient is currently going through a divorce. Allergies No Known Drug Allergies Allergy (Unverified 02/02/15 15:19) Unknown Home medications list reviewed: Yes - Past Medical/Surgical History Diabetic: No -: Elevated blood pressure without hypertension Past Surgical History: Patient denies surgical history Psychosocial/ Personal History: Patient is currently and going through a divorce. Patient works. - Family History Mother -: Heart disease Father -: Diabetes - Social History Smoking Status: Never smoker Alcohol use: Yes CD- Drugs: No Caffeine use: Yes Place of Residence: Home Review of Systems General: Unremarkable Eyes: Unremarkable ENT: Unremarkable Respiratory: Unremarkable Cardiovascular: Chest Pain, As per HPI Gastrointestinal: Unremarkable Genitourinary: Unremarkable Musculoskeletal: Back Pain, As per HPI Integumentary: Unremarkable Neurological: Unremarkable Lymphatics: Unremarkable Physical Examination - Physical Exam General: Alert, In no apparent distress, Oriented x3, Cooperative HEENT: Atraumatic, Normocephalic, PERRLA, Mucous membr. moist/pink Neck: Supple Respiratory: Clear to auscultation bilaterally, Normal air movement Cardiovascular: Normal pulses, Regular rate/rhythm Gastrointestinal: Normal bowel sounds, Soft and benign, Non-distended, No ascites, No tenderness, No masses, No rebound, No guarding Musculoskeletal: No erythema, No tenderness, No warmth Integumentary: No tenderness/swelling, No erythema, No warmth, No cyanosis Neurological: Normal speech, Normal strength at 5/5 x4 extr, Normal tone, Normal affect - Studies Laboratory Data (last 24 hrs) 08/31/19 17:30: PT 13.2 H, INR 1.12 08/31/19 17:30: WBC 11.4 H, Hgb 14.9, Hct 44.3, Plt Count 166 08/31/19 17:30: Sodium 139, Potassium 3.0 L, BUN 8, Creatinine 1.08, Glucose 154 H, Magnesium 2.1, Total Bilirubin 0.5, AST 49 H, ALT 105 H, Alkaline Phosphatase 68, Lipase 115 Assessment and Plan - Plan Impression: Chest pain Elevated blood pressure likely hypertension Alcohol use Elevated liver function likely alcohol related Plan: Chest pain: Patient will be admitted for further evaluation and observation. Will continue to monitor cardiac enzymes and telemetry. Will order echocardiogram. Cardiology consulted to further evaluate. Patient will remain NPO after midnight in the event that cardiology plans for inpatient evaluation. Otherwise patient may end up requiring outpatient evaluation if cardiac enzymes unremarkable. Await further recommendations from cardiology. Will continue with aspirin, Lipitor, and metoprolol. Will continue with Lovenox for DVT prophylaxis. Anticipate discharge tomorrow if clinically stable and await Cardiology recommendations. Elevated blood pressure likely hypertension: Blood pressure appears elevated. Patient likely with underlying hypertension. Will start metoprolol. Alcohol use: Education on alcohol cessation addressed in detail. Elevated liver function likely alcohol-related: Will check hepatitis panel. This can be recheck as an outpatient. Encourage alcohol cessation. Discharge Plan: Home Plan to discharge in: 24 Hours - Advance Directives Does patient have a Living Will: No Does patient have a Durable POA for Healthcare: No - Code Status/Comfort Care Code Status Assessed: Yes (Patient is full code) Time Spent Managing Pts Care (In Minutes): 55
[2019-08-31 22:54] LABS: Urine Blood NEGATIVE (NEG); Urine Glucose NEGATIVE (NEG); Urine Protein 1+ (NEG); Urine Specific Gravity 1.025 (1.005-1.030)
[2019-08-31 23:34] LABS: Urine Bacteria <20 /HPF (NONE SEEN); Urine Culture Reflex Order NOT NEEDED; Urine RBC <5 /HPF (NONE SEEN)
[2019-08-31] MEDS ORDERED: ACETAMINOPHEN 500 MG TAB PO PRN (23:54)
[2019-08-31] MEDS ORDERED: ONDANSETRON 4 MG/2 ML VIAL IV PRN (23:54)
[2019-08-31] MEDS ORDERED: TRAMADOL HCL 50 MG TAB PO PRN (23:54)
[2019-08-31] MEDS ORDERED: NITROGLYCERIN 0.4 MG/TAB SL PRN (23:54)
[2019-08-31] MEDS ORDERED: ATORVASTATIN 10 MG TAB PO SCH (23:54)
[2019-09-01] MEDS ORDERED: ATORVASTATIN 20 MG TAB ONE (00:20)
[2019-09-01 02:43] LABS: Absolute Lymphocytes (CBC) 4.9 K/uL (0.7-4.9); Basophils % 0.2 % (0-1.3); Hematocrit 41.2 % (39.6-49.0); Lymphocytes % 42.1 % (15.3-44.8); MPV 11.3 fL (7.6-11.3); RBC Red Blood Cell Count 4.54 M/uL (4.33-5.43)
[2019-09-01 02:56] LABS: CKMB Creatine Kinase MB < 1.0 ng/mL (0.3-3.6); Creatine Phosphokinase 70 U/L (39-308); Troponin I < 0.02 ng/mL (0.0-0.045)
[2019-09-01 02:59] LABS: BUN Blood Urea Nitrogen 11 mg/dL (7-18); Bicarbonate 32 mmol/L (21-32); Glucose Level 130 mg/dL (74-106); HDL Cholesterol 34 mg/dL (40-60); LDL Cholesterol, Calculated ND (<130); Magnesium 2.2 mg/dL (1.8-2.4); Potassium 3.8 mmol/L (3.5-5.1); Sodium Level 141 mmol/L (136-145)
[2019-09-01 03:14] LABS: LDL, Direct 154 mg/dL (100-129)
[2019-09-01] MEDS ORDERED: METOPROLOL TAR 25 MG TAB PO SCH (06:00)
[2019-09-01 08:31] VITALS: BMI 35.5
[2019-09-01] MEDS ORDERED: ENOXAPARIN 40 MG/0.4 ML SQ SCH (09:00)
[2019-09-01] MEDS ORDERED: ASPIRIN EC 81 MG TAB PO SCH (09:00)
[2019-09-01] MEDS ORDERED: METOPROLOL TAR 25 MG TAB ONE (09:37)
[2019-09-01] MEDS ORDERED: ASPIRIN EC 81 MG TAB PO ONE (09:37)
[2019-09-01] MEDS ORDERED: ENOXAPARIN 40 MG/0.4 ML SQ ONE (09:38)
--- NOTE | 2019-09-01 10:17 | EKG ---
Test Date: 2019-08-31 Test Time: 17:38:55 Internal Grinder Tender: DARIELA MEASUREMENT RESULTS: Intervals: Rate: 94 OK: 168 QRSD: 98 QT: 346 QTc: 432 [place]: P: 51 OK: 168 QRS: 25 T: 41 INTERPRETIVE STATEMENTS: Normal sinus rhythm Nonspecific ST and T wave abnormality Abnormal ECG Compared to ECG 02/02/2015 13:09:26 ST (T wave) deviation now present Sinus bradycardia no longer present Sinus arrhythmia no longer present Electronically Signed On 09-01-19 10:17:33 REGISTERED PHARMACIST by Nick Glasgow
[2019-09-01 10:47] VITALS: BP 122/80; TEMP 98.7
[2019-09-01 10:51] LABS: CKMB Creatine Kinase MB < 1.0 ng/mL (0.3-3.6); Creatine Phosphokinase 63 U/L (39-308); Troponin I < 0.02 ng/mL (0.0-0.045)
--- NOTE | 2019-09-01 11:02 | ECHO ---
HEIGHT: 5 ft 11 in WEIGHT: 255 lb 0.139 oz DATE OF STUDY: 09/01/[address]: James Mack DO 2-DIMENSIONAL: YES M.MODE: YES DOPPLER: YES COLOR FLOW: YES TDS: NO PORTABLE: NO DEFINITY: NO BUBBLE STUDY: NO DIAGNOSIS: CHEST PAIN CARDIAC HISTORY: CATHERIZATION: NO SURGERY: NO PROSTHETIC VALVE: NO PACEMAKER: NO MEASUREMENTS (cm) DIASTOLIC (NORMALS) SYSTOLIC (NORMALS) IVSd 1.1 (0.6-1.2) LA Diam 3.0 (1.9-4.0) LVEF 64% LVIDd 4.4 (3.5-5.7) LVIDs 2.9 (2.0-3.5) %FS 34% LVPWd 1.1 (0.6-1.2) Ao Diam 3.2 (2.0-3.7) 2 DIMENSIONAL ASSESSMENT: RIGHT ATRIUM: NORMAL LEFT ATRIUM: NORMAL RIGHT VENTRICLE: NORMAL LEFT VENTRICLE: NORMAL TRICUSPID VALVE: NORMAL MITRAL VALVE: NORMAL PULMONIC VALVE: NORMAL AORTIC VALVE: NORMAL PERICARDIAL EFFUSION: NONE AORTIC ROOT: NORMAL LEFT VENTRICULAR WALL MOTION: NORMAL. DOPPLER/COLOR FLOW: NORMAL. COMMENTS: NORMAL 2D ECHO WITH DOPPLER. TECHNOLOGIST: RIC MOORE
--- NOTE | 2019-09-01 11:22 | P.DS ---
Admission Date: 08/31/19 Discharge Date: 09/01/19 Primary Care Provider: Dr. Wynn Disposition: ROUTINE DISCHARGE Discharge Condition: GOOD Reason for Admission: chest pain Consultations: Cardiology-Dr. Glasgow Procedures: CXR: FINDINGS: The lungs appear clear of acute infiltrate. The heart is normal size IMPRESSION: No acute abnormalities displayed ECHO: EF 60 % LEFT VENTRICULAR WALL MOTION: NORMAL. DOPPLER/COLOR FLOW: NORMAL. COMMENTS: NORMAL 2D ECHO WITH DOPPLER. Medical Problem List: Chest pain Elevated blood pressure likely hypertension Alcohol use Elevated liver function likely alcohol related Hyperlipidemia Brief History of Present Illness: 39-year-old male presented to emergency room with chest pain. He reports the chest pain started today around 345 p.m. while he was sitting at home. It was mainly to the left side. No radiation of pain noted. This had occurred last week as well. He was seen in the emergency room at that time. He was evaluated and sent home. Patient denies fever, chills. Patient also reports some back pain. Patient has history of elevated blood pressure without hypertension. In the ER patient evaluated. Initial troponin unremarkable. CBC unremarkable. Sodium 138, potassium 3.0. BUN of 8, creatinine 1.08 with a GFR 77. AST slightly elevated at 49 ALT elevated 165. Chest x-ray unremarkable. EKG shows non specific changes. Patient was admitted for observation and further evaluation. In the ER when I evaluate the patient he appeared stable. Patient reports history of stress test done 3 years ago which was normal. There is a family history of CAD. Patient admits alcohol use. Patient is currently going through a divorce. Hospital Course: Patient presented with chest pain. Cardiac enzymes unremarkable. Case discussed with cardiology. Echocardiogram unremarkable. Chest x-ray unremarkable. Cardiology recommends patient to follow up as an outpatient for outpatient evaluation. Patient will be discharged home. Patient will continue with aspirin, Lipitor and metoprolol. Patient with elevated blood pressure likely underlying hypertension. Patient was started on metoprolol. At discharge patient will continue with metoprolol 12.5 mg 1 pill twice daily. Recommend to maintain blood pressures less 150/80. Further adjustment can be done by his PCP. Patient with alcohol abuse and noted elevated liver function. Alcohol cessation addressed in detail. Hepatitis panel obtained. This can be followed up as an outpatient. Patient found to have elevated LDL. Patient will be started on Lipitor 10 mg daily. Further adjustment can be done by his PCP. Vital Signs/Physical Exam: Temp Pulse Resp BP Pulse Ox 98.7 F 78 18 122/80 97 09/01/19 08:00 09/01/19 08:00 09/01/19 08:00 09/01/19 08:00 09/01/19 08:00 General: Alert, In no apparent distress, Oriented x3 HEENT: Atraumatic Neck: Supple Respiratory: Clear to auscultation bilaterally, Normal air movement Cardiovascular: Normal pulses, Regular rate/rhythm Gastrointestinal: Normal bowel sounds, Soft and benign, Non-distended, No tenderness, No masses, No rebound, No guarding Musculoskeletal: No erythema, No tenderness, No warmth Integumentary: No tenderness/swelling, No erythema, No warmth, No cyanosis Neurological: Normal speech, Normal strength at 5/5 x4 extr, Normal tone, Normal affect Laboratory Data at Discharge: WBC 11.6 K/uL (4.3-10.9) H 09/01/19 02:22 Hgb 14.1 g/dL (13.6-17.9) 09/01/19 02:22 Hct 41.2 % (39.6-49.0) 09/01/19 02:22 Plt Count 171 K/uL (152-406) 09/01/19 02:22 PT 13.2 SECONDS (9.5-12.5) H 08/31/19 17:30 INR 1.12 08/31/19 17:30 Sodium 141 mmol/L (136-145) 09/01/19 02:22 Potassium 3.8 mmol/L (3.5-5.1) 09/01/19 02:22 BUN 11 mg/dL (7-18) 09/01/19 02:22 Creatinine 1.07 mg/dL (0.55-1.3) 09/01/19 02:22 Glucose 130 mg/dL (74-106) H 09/01/19 02:22 Magnesium 2.2 mg/dL (1.8-2.4) 09/01/19 02:22 Total Bilirubin 0.5 mg/dL (0.2-1.0) 08/31/19 17:30 AST 49 U/L (15-37) H 08/31/19 17:30 ALT 105 U/L (12-78) H 08/31/19 17:30 Alkaline Phosphatase 68 U/L (45-117) 08/31/19 17:30 Troponin I < 0.02 ng/mL (0.0-0.045) 09/01/19 10:19 Triglycerides 415 mg/dL (<150) H 09/01/19 02:22 Cholesterol 220 mg/dL (<200) H 09/01/19 02:22 LDL Cholesterol Direct 154 mg/dL (100-129) H 09/01/19 02:22 HDL Cholesterol 34 mg/dL (40-60) L 09/01/19 02:22 Cholesterol/HDL Ratio 6.47 09/01/19 02:22 Lipase 115 U/L (73-393) 08/31/19 17:30 Home Medications: Aspirin [Aspirin EC 81 MG] 81 mg PO DAILY #90 tablet. 09/01/19 Atorvastatin Calcium [Lipitor*] 10 mg PO BEDTIME #30 tab 09/01/19 Metoprolol Tartrate [Lopressor*] 12.5 mg PO BID 6AM 6PM #60 tab 09/01/19 New Medications: Aspirin [Aspirin EC 81 MG] 81 mg PO DAILY #90 tablet. Atorvastatin Calcium [Lipitor*] 10 mg PO BEDTIME #30 tab Metoprolol Tartrate [Lopressor*] 12.5 mg PO BID 6AM 6PM #60 tab Patient Discharge Instructions: 1. Recommend follow up with his PCP in 1 week to follow up this hospitalization. 2. Patient presented with chest pain. Cardiac enzymes unremarkable. Case discussed with cardiology. Echocardiogram unremarkable. Chest x-ray unremarkable. Cardiology recommends patient to follow up as an outpatient for outpatient evaluation. Patient will be discharged home. Patient will continue with aspirin, Lipitor and metoprolol. 3. Patient with elevated blood pressure likely underlying hypertension. Patient was started on metoprolol. At discharge patient will continue with metoprolol 12.5 mg 1 pill twice daily. Recommend to maintain blood pressures less 150/80. Further adjustment can be done by his PCP. 4. Patient with alcohol abuse and noted elevated liver function. Alcohol cessation addressed in detail. Hepatitis panel obtained. This can be followed up as an outpatient. 5. Patient found to have elevated LDL. Patient will be started on Lipitor 10 mg daily. Further adjustment can be done by his PCP. Diet: AHA Time spent managing pt's care (in minutes): 55
[2019-09-01 13:59] VITALS: O2SAT 95
--- NOTE | 2019-09-01 15:53 | CON ---
History Of Present Illness: Mr. Rogers had chest pain, it was about 3 o'clock in the afternoon yest erday. Since being here, EKGs and cardiac enzymes are normal. The patient has no previous history o f myocardial infarction or stroke. Does not have diabetes, hypertension. Social History: He uses no tobacco. Allergies: HE HAS NO DRUG ALLERGIES. Physical Examination: General: 5 feet 11 inch, 255 pounds. Alert, oriented. Pleasant. Not in distress. Obese. Lungs: Clear. Neck: Carotids, no bruit. Heart: Within normal limits. Extremities: Normal. Imaging: His electrocardiogram is within normal limits. Assessment And Plan: Mr. Rogers has chest pain that is probably noncardiac related to point tendern ess, and I believe he could be discharged, undergo a stress test as an outpatient. An echocardiogram done today, looks normal. JEFF Voice ID: [id number] Report ID: [id number]
[2019-09-04 05:12] LABS: HBsAG Nonreactive (Nonreactive)
== END 2019-09-01 13:45 | disposition home or self-care (01) ==
LOC: ER 16:46 → OBSVTOIN 19:51 → INTOOBSV 19:51 → ERHOLD 19:51
PROVIDERS: ADMIT Family Medicine; ATTEND Family Medicine
DX: R07.9 Chest pain, unspecified (principal); R03.0 Elevated blood-pressure reading, without diagnosis of hypertension; Z72.89 Other problems related to lifestyle; R79.89 Other specified abnormal findings of blood chemistry; E78.5 Hyperlipidemia, unspecified
CPT/HCPCS: 93005; 93306; 87088; 85025 ×2; 80048 ×2; 36415; 83721; 83735 ×2; 82550 ×2; 85610; 80061; 80076; 84443; 84484 ×4; 82553 ×2; 84439; 83690; 83880; 80074; 71045; 96375; 96372; 96374; 99285; J1650 ×2; J2405; G0378 ×2; 81003; 81015; 87086